=== PATIENT | male | born 1950 | race Caucasian/White ===

== ENCOUNTER 2016-09-23 08:10 | Day surgery (SDC) | payer MEDICARE, BC ==
[2016-09-23 10:33] VITALS: BP 115/57; PULSE 51; RESP 20; TEMP 97.1; O2SAT 96
== END 2016-09-23 10:55 | disposition home or self-care (01) | DRG 812 ==
LOC: SURG 08:10
PROVIDERS: ATTEND Surgery
DX: D50.0 Iron deficiency anemia secondary to blood loss (chronic) (principal); D12.0 Benign neoplasm of cecum; Z86.010 Personal history of colon polyps; K31.9 Disease of stomach and duodenum, unspecified; D12.2 Benign neoplasm of ascending colon; D12.4 Benign neoplasm of descending colon; D12.3 Benign neoplasm of transverse colon; K62.1 Rectal polyp
CPT/HCPCS: J2001; J2704

== ENCOUNTER 2016-11-09 17:45 | Inpatient (IN) | payer MEDICARE, BC ==
[2016-11-09] MEDS ORDERED: PATIENT EDUCATION 1 MISC PRN (19:02)
[2016-11-09] MEDS ORDERED: FUROSEMIDE 20mg SOL IV ONE (19:11)
[2016-11-09 19:33] LABS: ABO O; ANTIBODY SCREEN Negative; RH TYPE Positive; UNIT TYPE O POSITIVE
[2016-11-09] MEDS ORDERED: ATORVASTATIN 10 MG TAB PO SCH (21:00)
[2016-11-09] MEDS: SODIUM CHLORIDE 0.9% FLUSH 10 ML SOL IV SCH (21:07)
[2016-11-10] MEDS: SODIUM CHLORIDE 0.9% FLUSH 10 ML SOL IV SCH (01:53)
[2016-11-10 01:55] VITALS: RESP 18
[2016-11-10 07:21] LABS: POTASSIUM 3.7 mMol/L (3.5-5.1)
[2016-11-10 07:27] LABS: HEMATOCRIT 29 % (39-53); MEAN CORPUSCULAR HGB CONC 33.9 gm/dl (32.0-36.0)
[2016-11-10 07:31] LABS: MEAN CORPUSCULAR VOLUME 79 fL (80-100)
[2016-11-10 07:50] LABS: BASOPHILS % (MANUAL) 0 % (0-3); EOSINOPHILS % (MANUAL) 1 % (0-9); LYMPHOCYTES % (MANUAL) 41 % (10-50); OVALOCYTES PRESENT
[2016-11-10] MEDS ORDERED: AMLODIPINE 5 MG TAB PO SCH (09:00)
[2016-11-10] MEDS ORDERED: FUROSEMIDE 20 MG TAB PO SCH (09:00)
[2016-11-10] MEDS ORDERED: OMEPRAZOLE 20 MG CAPSULE PO SCH (09:00)
[2016-11-10] MEDS ORDERED: HYDROCHLOROTHIAZIDE 25 MG TAB PO SCH (09:00)
[2016-11-10] MEDS ORDERED: VALSARTAN HYDROCHLOROTHIAZIDE PO SCH (09:00)
[2016-11-10] MEDS ORDERED: AMIODARONE 200 MG TAB PO SCH (09:00)
[2016-11-10] MEDS ORDERED: PANTOPRAZOLE SODIUM 40 MG ECT PO SCH (09:00)
[2016-11-10] MEDS ORDERED: VALSARTAN 80 MG TABLET PO SCH (09:00)
[2016-11-10 09:42] VITALS: O2SAT 97
[2016-11-10] MEDS ORDERED: INFLUENZA HIGH DOSE VACCINE 0.5 ML SUS IM ONE (09:43)
[2016-11-10] MEDS ORDERED: PNEUMOCOCCAL VACCINE 0.5 ML SOL IM ONE (09:43)
[2016-11-10] MEDS ORDERED: INFLUENZA VIRUS VACCINE 0.5 ML SUS IM ONE ×2 (10:55→11:06)
[2016-11-10 11:12] LABS: APPEARANCE,URINE Cloudy; BILIRUBIN,URINE NEGATIVE (NEGATIVE); COLOR,URINE Dark yellow; GLUCOSE, URINE (UA) NEGATIVE (NEGATIVE); KETONES,URINE NEGATIVE (NEGATIVE); LEUKOCYTE ESTERASE ,URINE NEGATIVE (NEGATIVE); NITRATE,URINE NEGATIVE (NEGATIVE); OCCULT BLOOD,URINE NEGATIVE (NEG-TRACE)
[2016-11-10 11:44] LABS: RBC,URINE 0-1 (0-3AV/HPF); WBC,URINE 0-2 (0-5AV/HPF)
[2016-11-10 15:06] VITALS: BP 155/76; PULSE 63; TEMP 98.1
[2016-11-11] MEDS ORDERED: AMIODARONE 200 MG TAB PO SCH (21:00)
== END 2016-11-10 15:09 | disposition home or self-care (01) | DRG 812 ==
LOC: OBSVTOIN 17:45 → ACUTE CARE 17:45
PROVIDERS: ADMIT Family Medicine; ATTEND Family Medicine
PROC: 30233N1 Transfusion of Nonautologous Red Blood Cells into Peripheral Vein, Percutaneous Approach (ICD-10-PCS; principal; 2016-11-09)
DX: D64.9 Anemia, unspecified (principal); I48.91 Unspecified atrial fibrillation; I10 Essential (primary) hypertension; Z79.01 Long term (current) use of anticoagulants
CPT/HCPCS: 36415; 80048; 81001; 85007; 85027; 86850; 86900; 86901; 86920; 90662; 90686; 90732; 99070; J1940; P9016; G0008

== ENCOUNTER 2018-02-11 12:20 | Inpatient (IN) | payer MEDICARE, BC ==
[2018-02-11 13:12] LABS: HEMATOCRIT 29 % (39-53); HEMOGLOBIN 9.1 gm/dl (13.5-17.7); MEAN CORPUSCULAR HEMOGLOBIN 24.1 pg (27.0-32.0); MEAN CORPUSCULAR HGB CONC 31.2 gm/dl (32.0-36.0)
[2018-02-11 13:21] LABS: INR 1.21 (0.86-1.12)
[2018-02-11 13:25] LABS: ALBUMIN 2.6 gm/dl (3.4-5.0); BILIRUBIN,TOTAL 1.1 mg/dl (0.2-1.0); CALCIUM 7.8 mg/dl (8.5-10.1); CREATININE 1.3 mg/dl (0.80-1.30); POTASSIUM 4.6 mMol/L (3.5-5.1); TOTAL PROTEIN 7.1 gm/dl (6.4-8.2)
[2018-02-11 13:30] LABS: CARBON DIOXIDE 23.1 mEq/L (21-32)
[2018-02-11 13:32] LABS: MEAN CORPUSCULAR VOLUME 77 fL (80-100)
[2018-02-11 13:33] LABS: EOSINOPHILS % (AUTO) 1 % (0-9); LYMPHOCYTES % (AUTO) 14.2 % (10-50); NEUTROPHILS % (AUTO) 77.6 % (37-80)
[2018-02-11 13:34] LABS: ANISOCYTOSIS SLIGHT AMT; OVALOCYTES PRESENT; POIKILOCYTOSIS SLIGHT AMT
[2018-02-11] MEDS ORDERED: SODIUM CHLORIDE 0.9% FLUSH 10 ML SOL IV PRN (14:28)
[2018-02-11] MEDS ORDERED: FUROSEMIDE 40 MG TAB PO ONE (14:46)
[2018-02-11] MEDS ORDERED: FUROSEMIDE 40 MG TAB ONE (14:48)
[2018-02-11] MEDS ORDERED: LORAZEPAM 0.5 MG TAB PO PRN (16:16)
[2018-02-11] MEDS: LACTULOSE 10 GM/15 ML SOL PO SCH ×2 (17:00→20:17)
[2018-02-11] MEDS ORDERED: WARFARIN SODIUM 5 MG TAB PO SCH (18:15)
[2018-02-11] MEDS ORDERED: PEG-400/PROPYLENE GLYCOL 1 DROP SOL EACHEYE PRN (19:15)
[2018-02-11] MEDS: SODIUM CHLORIDE 0.9% FLUSH 10 ML SOL IV SCH (20:02)
[2018-02-11] MEDS: WARFARIN SODIUM 2.5 MG TAB PO SCH (20:17)
[2018-02-11] MEDS: ATORVASTATIN 10 MG TAB PO SCH (20:17)
[2018-02-12] MEDS: SODIUM CHLORIDE 0.9% FLUSH 10 ML SOL IV SCH ×4 (00:47→23:45)
[2018-02-12] MEDS: GABAPENTIN 300 MG CAP PO SCH ×4 (01:45→20:05)
[2018-02-12 08:01] LABS: BASOPHILS % (AUTO) 1 % (0-3); EOSINOPHILS % (AUTO) 1 % (0-9); HEMATOCRIT 30 % (39-53); HEMOGLOBIN 9.4 gm/dl (13.5-17.7); LYMPHOCYTES % (AUTO) 22.6 % (10-50); MEAN CORPUSCULAR HEMOGLOBIN 24.1 pg (27.0-32.0); MEAN CORPUSCULAR HGB CONC 31.4 gm/dl (32.0-36.0); MONOCYTES % (AUTO) 10.8 % (0-12); NEUTROPHILS % (AUTO) 64.3 % (37-80)
[2018-02-12 08:09] LABS: CALCIUM 8.1 mg/dl (8.5-10.1); CARBON DIOXIDE 23.7 mEq/L (21-32); CREATININE 1.21 mg/dl (0.80-1.30); POTASSIUM 4.6 mMol/L (3.5-5.1)
[2018-02-12 08:17] LABS: MEAN CORPUSCULAR VOLUME 77 fL (80-100)
[2018-02-12 08:19] LABS: INR 1.19 (0.86-1.12)
[2018-02-12 08:54] LABS: ANISOCYTOSIS SLIGHT AMT; HYPOCHROMASIA SLIGHT AMT; OVALOCYTES PRESENT; POIKILOCYTOSIS SLIGHT AMT
[2018-02-12] MEDS: LACTULOSE 10 GM/15 ML SOL PO SCH ×4 (10:22→20:07)
[2018-02-12] MEDS: HYDROCHLOROTHIAZIDE 25 MG TAB PO SCH (10:25)
[2018-02-12] MEDS: LOSARTAN POTASSIUM 50 MG TAB PO SCH (10:25)
[2018-02-12] MEDS: POTASSIUM CHLORIDE 10 MEQ TER PO SCH (10:26)
[2018-02-12] MEDS: FUROSEMIDE 20 MG TAB PO SCH (10:27)
[2018-02-12] MEDS: PANTOPRAZOLE SODIUM 40 MG ECT PO SCH (10:28)
[2018-02-12] MEDS: SPIRONOLACTONE 25 MG TAB PO SCH (10:28)
[2018-02-12] MEDS: FEXOFENADINE HCL 180 MG TAB PO SCH (10:28)
[2018-02-12] MEDS: WARFARIN SODIUM 5 MG TAB PO SCH (17:44)
[2018-02-12] MEDS ORDERED: WARFARIN SODIUM 5 MG TAB PO SCH (18:06)
[2018-02-12] MEDS: ATORVASTATIN 10 MG TAB PO SCH (20:05)
[2018-02-13 07:47] LABS: INR 1.18 (0.86-1.12)
[2018-02-13 08:18] LABS: CALCIUM 8.1 mg/dl (8.5-10.1); CARBON DIOXIDE 25.2 mEq/L (21-32); CREATININE 2.76 mg/dl (0.80-1.30); POTASSIUM 4.7 mMol/L (3.5-5.1)
[2018-02-13] MEDS: SODIUM CHLORIDE 0.9% FLUSH 10 ML SOL IV SCH ×2 (09:18→16:49)
[2018-02-13] MEDS: LACTULOSE 10 GM/15 ML SOL PO SCH ×4 (09:19→20:49)
[2018-02-13] MEDS: FEXOFENADINE HCL 180 MG TAB PO SCH (09:20)
[2018-02-13] MEDS: PANTOPRAZOLE SODIUM 40 MG ECT PO SCH (09:20)
[2018-02-13] MEDS: GABAPENTIN 300 MG CAP PO SCH ×3 (09:20→20:47)
[2018-02-13] MEDS: SODIUM CHLORIDE 0.9% 1000ML 1,000 ML IV SCH ×2 (12:09→22:13)
[2018-02-13] MEDS: TRAMADOL HYDROCHLORIDE 50 MG TAB PO PRN ×2 (12:12→22:16)
[2018-02-13] MEDS: LOSARTAN POTASSIUM 50 MG TAB PO SCH (13:41)
[2018-02-13] MEDS: HYDROCHLOROTHIAZIDE 25 MG TAB PO SCH (13:43)
[2018-02-13] MEDS: POTASSIUM CHLORIDE 10 MEQ TER PO SCH (13:43)
[2018-02-13] MEDS: FUROSEMIDE 20 MG TAB PO SCH (13:43)
[2018-02-13] MEDS: SPIRONOLACTONE 25 MG TAB PO SCH ×2 (13:43→20:47)
[2018-02-13] MEDS: WARFARIN SODIUM 5 MG TAB PO SCH (17:52)
[2018-02-13] MEDS: ATORVASTATIN 10 MG TAB PO SCH (20:49)
[2018-02-14] MEDS: SODIUM CHLORIDE 0.9% FLUSH 10 ML SOL IV SCH ×4 (06:08→21:30)
[2018-02-14 07:40] LABS: INR 1.39 (0.86-1.12)
[2018-02-14 08:03] LABS: CALCIUM 7.9 mg/dl (8.5-10.1); CREATININE 2.09 mg/dl (0.80-1.30); POTASSIUM 5.5 mMol/L (3.5-5.1)
[2018-02-14 08:04] LABS: ALBUMIN 2.4 gm/dl (3.4-5.0); BILIRUBIN,TOTAL 0.8 mg/dl (0.2-1.0); TOTAL PROTEIN 6.7 gm/dl (6.4-8.2)
[2018-02-14] MEDS: FUROSEMIDE 20 MG TAB PO SCH (08:58)
[2018-02-14] MEDS: LACTULOSE 10 GM/15 ML SOL PO SCH ×4 (08:58→21:30)
[2018-02-14] MEDS: PANTOPRAZOLE SODIUM 40 MG ECT PO SCH (09:00)
[2018-02-14] MEDS: GABAPENTIN 300 MG CAP PO SCH ×3 (09:00→21:31)
[2018-02-14] MEDS ORDERED: FUROSEMIDE 40 MG SOL IV SCH ×2 (09:00)
[2018-02-14] MEDS: FEXOFENADINE HCL 180 MG TAB PO SCH (09:06)
[2018-02-14] MEDS: SODIUM CHLORIDE 0.9% 1000ML 1,000 ML IV SCH (10:12)
[2018-02-14] MEDS: RIFAXIMIN 550 MG TAB PO SCH ×2 (11:46→21:32)
[2018-02-14 16:34] LABS: CALCIUM 7.9 mg/dl (8.5-10.1); CREATININE 1.63 mg/dl (0.80-1.30); POTASSIUM 5.1 mMol/L (3.5-5.1)
[2018-02-14 16:42] LABS: CARBON DIOXIDE 23.8 mEq/L (21-32)
[2018-02-14] MEDS: WARFARIN SODIUM 2.5 MG TAB PO SCH (18:14)
[2018-02-14] MEDS: ATORVASTATIN 10 MG TAB PO SCH (21:30)
[2018-02-15] MEDS: SODIUM CHLORIDE 0.9% FLUSH 10 ML SOL IV SCH ×3 (00:21→18:04)
[2018-02-15 07:16] LABS: ALBUMIN 2.5 gm/dl (3.4-5.0); CALCIUM 7.8 mg/dl (8.5-10.1); CREATININE 1.21 mg/dl (0.80-1.30); POTASSIUM 4.9 mMol/L (3.5-5.1); TOTAL PROTEIN 6.8 gm/dl (6.4-8.2)
[2018-02-15 07:19] LABS: INR 1.77 (0.86-1.12)
[2018-02-15 07:20] LABS: BASOPHILS % (AUTO) 1 % (0-3); EOSINOPHILS % (AUTO) 1 % (0-9); HEMATOCRIT 30 % (39-53); HEMOGLOBIN 9.1 gm/dl (13.5-17.7); MEAN CORPUSCULAR HGB CONC 30.8 gm/dl (32.0-36.0); MONOCYTES % (AUTO) 10.8 % (0-12); NEUTROPHILS % (AUTO) 72.6 % (37-80)
[2018-02-15 07:21] LABS: CARBON DIOXIDE 23.6 mEq/L (21-32)
[2018-02-15 07:27] LABS: MEAN CORPUSCULAR VOLUME 78 fL (80-100)
[2018-02-15 07:54] LABS: ANISOCYTOSIS SLIGHT AMT; BURR CELLS PRESENT; OVALOCYTES PRESENT; POIKILOCYTOSIS MOD AMT; SPHEROCYTES PRESENT; TARGET CELLS PRESENT
[2018-02-15] MEDS: RIFAXIMIN 550 MG TAB PO SCH ×2 (09:05→20:49)
[2018-02-15] MEDS: GABAPENTIN 300 MG CAP PO SCH ×3 (09:06→20:48)
[2018-02-15] MEDS: FUROSEMIDE 20 MG TAB PO SCH (09:06)
[2018-02-15] MEDS: PANTOPRAZOLE SODIUM 40 MG ECT PO SCH (09:06)
[2018-02-15] MEDS: LACTULOSE 10 GM/15 ML SOL PO SCH ×3 (09:06→20:46)
[2018-02-15] MEDS: FEXOFENADINE HCL 180 MG TAB PO SCH (09:07)
[2018-02-15] MEDS: WARFARIN SODIUM 5 MG TAB PO SCH (17:20)
[2018-02-15] MEDS: ATORVASTATIN 10 MG TAB PO SCH (20:47)
[2018-02-16] MEDS: SODIUM CHLORIDE 0.9% FLUSH 10 ML SOL IV SCH ×2 (00:53→08:27)
[2018-02-16 07:07] LABS: BASOPHILS % (AUTO) 1 % (0-3); EOSINOPHILS % (AUTO) 1 % (0-9); HEMATOCRIT 29 % (39-53); LYMPHOCYTES % (AUTO) 18.6 % (10-50); MEAN CORPUSCULAR HEMOGLOBIN 24.4 pg (27.0-32.0); MEAN CORPUSCULAR HGB CONC 31.4 gm/dl (32.0-36.0); MONOCYTES % (AUTO) 10.9 % (0-12); NEUTROPHILS % (AUTO) 68.3 % (37-80)
[2018-02-16 07:23] LABS: ALBUMIN 2.5 gm/dl (3.4-5.0); BILIRUBIN,TOTAL 1.2 mg/dl (0.2-1.0); CALCIUM 7.7 mg/dl (8.5-10.1); CARBON DIOXIDE 24.5 mEq/L (21-32); CREATININE 1.04 mg/dl (0.80-1.30); POTASSIUM 4.7 mMol/L (3.5-5.1); TOTAL PROTEIN 6.7 gm/dl (6.4-8.2)
[2018-02-16 07:26] LABS: MEAN CORPUSCULAR VOLUME 78 fL (80-100)
[2018-02-16 07:28] LABS: ANISOCYTOSIS SLIGHT AMT; HYPOCHROMASIA SLIGHT AMT; OVALOCYTES PRESENT; POIKILOCYTOSIS MOD AMT; TEAR DROP CELLS PRESENT
[2018-02-16 07:31] LABS: INR 1.96 (0.86-1.12)
[2018-02-16 08:17] VITALS: BP 156/71; PULSE 69; RESP 22; TEMP 98.2; O2SAT 99
[2018-02-16] MEDS: SPIRONOLACTONE 25 MG TAB PO SCH (08:29)
[2018-02-16] MEDS: FEXOFENADINE HCL 180 MG TAB PO SCH (08:30)
[2018-02-16] MEDS: LACTULOSE 10 GM/15 ML SOL PO SCH ×2 (08:30→13:42)
[2018-02-16] MEDS: GABAPENTIN 300 MG CAP PO SCH ×2 (08:30→13:42)
[2018-02-16] MEDS: PANTOPRAZOLE SODIUM 40 MG ECT PO SCH (08:31)
[2018-02-16] MEDS: RIFAXIMIN 550 MG TAB PO SCH (08:31)
[2018-02-16] MEDS ORDERED: FUROSEMIDE 40 MG TAB PO SCH (09:00)
[2018-03-08 14:39] LABS: BASOPHILS % (AUTO) 0 % (0-3)
== END 2018-02-16 13:50 | disposition home or self-care (01) | DRG 433 ==
LOC: ED 12:20 → UNDOADMIN 16:00 → ACUTE CARE 16:00
PROVIDERS: ADMIT Family Medicine; ATTEND Family Medicine
PROC: F01L5ZZ Range of Motion and Joint Integrity Assessment of Musculoskeletal System - Lower Back / Lower Extremity (ICD-10-PCS; principal; 2018-02-15)
PROC: F01ZBFZ Bed Mobility Assessment using Assistive, Adaptive, Supportive or Protective Equipment (ICD-10-PCS; 2018-02-15)
DX: K74.69 Other cirrhosis of liver (principal); E87.1 Hypo-osmolality and hyponatremia; R18.8 Other ascites; E72.20 Disorder of urea cycle metabolism, unspecified; R41.0 Disorientation, unspecified; D64.9 Anemia, unspecified; Z79.01 Long term (current) use of anticoagulants; I10 Essential (primary) hypertension; I48.91 Unspecified atrial fibrillation; R06.02 Shortness of breath; R53.1 Weakness; K72.90 Hepatic failure, unspecified without coma
CPT/HCPCS: 36415; 71046; 74177; 80048; 80053; 82140; 82150; 83880; 85025; 85610; 99284; J1940; Q9967; A6232; A9270; A9270-GY

== ENCOUNTER 2018-05-21 19:22 | Inpatient (IN) | payer MEDICARE, BC ==
[2018-05-21 19:58] LABS: BASOPHILS % (AUTO) 1 % (0-3); EOSINOPHILS % (AUTO) 1 % (0-9); HEMATOCRIT 28 % (39-53); HEMOGLOBIN 8.8 gm/dl (13.5-17.7); LYMPHOCYTES % (AUTO) 12.4 % (10-50); MEAN CORPUSCULAR HEMOGLOBIN 25.2 pg (27.0-32.0); MEAN CORPUSCULAR HGB CONC 31.2 gm/dl (32.0-36.0); MONOCYTES % (AUTO) 11.4 % (0-12); NEUTROPHILS % (AUTO) 74.4 % (37-80)
[2018-05-21] MEDS ORDERED: CEFAZOLIN SODIUM 1 GM PDS IV ONE (19:58)
[2018-05-21 20:02] LABS: MEAN CORPUSCULAR VOLUME 81 fL (80-100)
[2018-05-21 20:09] LABS: CALCIUM 7.3 mg/dl (8.5-10.1); CARBON DIOXIDE 23.3 mEq/L (21-32); CREATININE 1.32 mg/dl (0.80-1.30); CRP INFLAMMATORY 3.51 mg/dl (0.00-0.33); POTASSIUM 5.1 mMol/L (3.5-5.1)
[2018-05-21 20:19] LABS: LACTIC ACID 1.4 mMol/L (0.0-2.0)
[2018-05-21 20:20] LABS: ALBUMIN 2.3 gm/dl (3.4-5.0); BILIRUBIN,DIRECT 0.5 mg/dl (0.0-0.2)
[2018-05-21] MEDS ORDERED: CEFAZOLIN SODIUM 1 GM PDS ONE (20:22)
[2018-05-21 20:51] LABS: ANISOCYTOSIS SLIGHT; HYPOCHROMASIA SLIGHT AMT; OVALOCYTES PRESENT; POIKILOCYTOSIS MOD AMT; TEAR DROP CELLS PRESENT
[2018-05-21 20:53] LABS: INR 2.35 (0.86-1.12)
[2018-05-21 21:01] LABS: APPEARANCE,URINE Clear; BILIRUBIN,URINE NEGATIVE (NEGATIVE); COLOR,URINE Yellow; GLUCOSE, URINE (UA) NEGATIVE (NEGATIVE); KETONES,URINE TRACE (NEGATIVE); LEUKOCYTE ESTERASE ,URINE NEGATIVE (NEGATIVE); NITRATE,URINE NEGATIVE (NEGATIVE); OCCULT BLOOD,URINE NEGATIVE (NEG-TRACE); PH,URINE 5.5
[2018-05-21 21:12] LABS: CRYSTALS NEGATIVE (0-3 AVE/HPF); EPITHELIAL CELLS 0-2 (SQUAMOUS); RBC,URINE 0-2 (0-3AV/HPF)
[2018-05-21 21:13] LABS: BACTERIA TRACE (< 1+)
[2018-05-21] MEDS ORDERED: WARFARIN SODIUM 5 MG TAB PO SCH (22:00)
[2018-05-21] MEDS: LACTULOSE 10 GM/15 ML SOL PO SCH (23:11)
[2018-05-21] MEDS ORDERED: SPIRONOLACTONE 25 MG TAB ONE (23:27)
[2018-05-21] MEDS: ATORVASTATIN 10 MG TAB PO SCH (23:32)
[2018-05-21] MEDS: SPIRONOLACTONE 100 MG TAB PO SCH (23:34)
[2018-05-22] MEDS ORDERED: HYDROXYZINE PAMOATE 25 MG CAPSULE PO PRN (07:30)
[2018-05-22] MEDS ORDERED: NIFEDIPINE TOP PRN (07:30)
[2018-05-22 07:44] LABS: CALCIUM 7.5 mg/dl (8.5-10.1); CARBON DIOXIDE 21.3 mEq/L (21-32); CREATININE 1.21 mg/dl (0.80-1.30); POTASSIUM 4.9 mMol/L (3.5-5.1)
[2018-05-22] MEDS ORDERED: WARFARIN SODIUM 5 MG TAB PO SCH (08:00)
[2018-05-22 08:08] LABS: INR 1.91 (0.86-1.12)
[2018-05-22] MEDS ORDERED: OMEPRAZOLE 20 MG CAPSULE PO SCH (09:00)
[2018-05-22] MEDS ORDERED: ASCORBIC ACID 500 MG TAB PO SCH (09:00)
[2018-05-22] MEDS ORDERED: GABAPENTIN 300 MG CAP PO SCH (09:00)
[2018-05-22] MEDS ORDERED: LACTULOSE 10 GM/15 ML SOL PO SCH (09:00)
[2018-05-22] MEDS ORDERED: FUROSEMIDE 20 MG TAB PO SCH ×2 (09:00)
[2018-05-22] MEDS ORDERED: SPIRONOLACTONE 25 MG TAB ONE (09:19)
[2018-05-22] MEDS: FERROUS GLUCONATE 324 MG TABLET PO SCH (10:34)
[2018-05-22] MEDS: AMLODIPINE 5 MG TAB PO SCH (10:36)
[2018-05-22] MEDS: PANTOPRAZOLE SODIUM 40 MG ECT PO SCH (10:36)
[2018-05-22] MEDS ORDERED: GABAPENTIN 100 MG CAP ONE (10:40)
[2018-05-22] MEDS: SPIRONOLACTONE 100 MG TAB PO SCH (10:41)
[2018-05-22] MEDS: GABAPENTIN 300 MG CAP PO SCH ×3 (10:42→21:26)
[2018-05-22] MEDS: LACTULOSE 10 GM/15 ML SOL PO SCH ×5 (10:45→21:37)
[2018-05-22] MEDS ORDERED: PEG-400/PROPYLENE GLYCOL 1 DROP SOL EACHEYE PRN (12:45)
[2018-05-22] MEDS: RIFAXIMIN 550 MG TAB PO SCH ×2 (13:34→21:25)
[2018-05-22] MEDS: VITAMIN A PALMITATE 10000 UNIT PO SCH (13:35)
[2018-05-22] MEDS: ASCORBIC ACID PO SCH (13:35)
[2018-05-22] MEDS: IRON CARBONYL PO SCH (13:35)
[2018-05-22] MEDS: FEXOFENADINE HCL 180 MG TAB PO SCH (13:42)
[2018-05-22] MEDS ORDERED: WARFARIN SODIUM 2.5 MG TAB PO SCH ×2 (18:00)
[2018-05-22] MEDS: ATORVASTATIN 10 MG TAB PO SCH (21:27)
[2018-05-22] MEDS: SPIRONOLACTONE 25 MG TAB PO SCH (21:34)
[2018-05-23] MEDS: HYDROXYZINE HCL 25 MG TAB PO PRN ×2 (00:51→09:24)
[2018-05-23 07:25] LABS: BASOPHILS % (AUTO) 1 % (0-3); EOSINOPHILS % (AUTO) 1 % (0-9); HEMATOCRIT 31 % (39-53); HEMOGLOBIN 9.3 gm/dl (13.5-17.7); LYMPHOCYTES % (AUTO) 19.4 % (10-50); MEAN CORPUSCULAR HEMOGLOBIN 25.1 pg (27.0-32.0); MEAN CORPUSCULAR HGB CONC 30.4 gm/dl (32.0-36.0); MEAN CORPUSCULAR VOLUME 82 fL (80-100); MONOCYTES % (AUTO) 12.1 % (0-12); NEUTROPHILS % (AUTO) 66.3 % (37-80)
[2018-05-23 07:27] LABS: CALCIUM 7.8 mg/dl (8.5-10.1); CARBON DIOXIDE 23.3 mEq/L (21-32); CREATININE 1.32 mg/dl (0.80-1.30); POTASSIUM 4.8 mMol/L (3.5-5.1)
[2018-05-23 07:43] LABS: INR 1.84 (0.86-1.12)
[2018-05-23 07:55] VITALS: BP 123/71; PULSE 76; RESP 16; TEMP 97.6; O2SAT 99
[2018-05-23] MEDS ORDERED: CHOLECALCIFEROL PO SCH ×2 (09:00→21:49)
[2018-05-23] MEDS ORDERED: FUROSEMIDE 40 MG TAB PO SCH (09:00)
[2018-05-23] MEDS: FEXOFENADINE HCL 180 MG TAB PO SCH (09:18)
[2018-05-23] MEDS: SPIRONOLACTONE 25 MG TAB PO SCH (09:18)
[2018-05-23] MEDS: LACTULOSE 10 GM/15 ML SOL PO SCH ×2 (09:20→12:34)
[2018-05-23] MEDS: IRON CARBONYL PO SCH (09:21)
[2018-05-23] MEDS: ASCORBIC ACID PO SCH (09:21)
[2018-05-23] MEDS: FERROUS GLUCONATE 324 MG TABLET PO SCH (09:21)
[2018-05-23] MEDS: AMLODIPINE 5 MG TAB PO SCH (09:22)
[2018-05-23] MEDS: PANTOPRAZOLE SODIUM 40 MG ECT PO SCH (09:22)
[2018-05-23] MEDS: VITAMIN A PALMITATE 10000 UNIT PO SCH (09:22)
[2018-05-23] MEDS: GABAPENTIN 300 MG CAP PO SCH ×2 (09:22→13:18)
[2018-05-23] MEDS: RIFAXIMIN 550 MG TAB PO SCH (09:23)
[2018-05-24] MEDS ORDERED: WARFARIN SODIUM 5 MG TAB PO SCH ×3 (08:00→21:49)
== END 2018-05-23 14:50 | disposition home or self-care (01) | DRG 948 ==
LOC: ED 19:22 → ACUTE CARE 21:40
PROVIDERS: ADMIT Family Medicine; ATTEND Family Medicine
DX: R41.0 Disorientation, unspecified (principal); L03.311 Cellulitis of abdominal wall; D64.9 Anemia, unspecified; E86.0 Dehydration; R41.82 Altered mental status, unspecified; R79.89 Other specified abnormal findings of blood chemistry; R40.2362 Coma scale, best motor response, obeys commands, at arrival to emergency department; R40.2132 Coma scale, eyes open, to sound, at arrival to emergency department; R40.2252 Coma scale, best verbal response, oriented, at arrival to emergency department; K72.90 Hepatic failure, unspecified without coma; I10 Essential (primary) hypertension; I48.91 Unspecified atrial fibrillation; K74.60 Unspecified cirrhosis of liver
CPT/HCPCS: 36415; 70450; 80048; 80076; 81001; 82140; 85025; 85610; 87040; 87077; 87205; 93005; 96374; 99222; 99291; J0690; A9270; A9270-GY

== ENCOUNTER 2018-06-10 16:21 | Emergency (ER) | payer MEDICARE, BC ==
[2018-06-10 16:28] VITALS: TEMP 96.8
[2018-06-10] MEDS ORDERED: SODIUM POLYSTYRENE SULFONATE 15 GM/60 ML SUS PO SCH (17:00)
[2018-06-10] MEDS ORDERED: SODIUM POLYSTYRENE SULFONATE 15 GM/60 ML SUS ONE (17:07)
[2018-06-10] MEDS ORDERED: ALBUMIN HUMAN 12.5 GM IV ONE (17:07)
[2018-06-10] MEDS ORDERED: ALBUMIN HUMAN 25 GM/100 ML SOL IV ONE (17:21)
[2018-06-10 19:14] VITALS: BP 125/60; PULSE 69; RESP 18; O2SAT 100
== END 2018-06-10 18:00 | disposition short-term general hospital (02) | DRG 443 ==
LOC: ED 16:21
DX: K76.7 Hepatorenal syndrome (principal)
CPT/HCPCS: 93005; 96365; 99070; 99284; P9047; A9270-GY